=== PATIENT | female | born 1965 | race Caucasian/White ===

== ENCOUNTER 2017-06-10 21:22 | Emergency (ER) | payer BC ==
[~2017-06-10] VITALS: Ht 170.2 cm; Wt 74.8 kg
--- NOTE | 2017-06-10 21:25 | ED.ADGEN ---
Past History Past Medical History: Other Adult General Chief Complaint Chief Complaint " I some how got the door shut on my finger..." ( Lt. 3 finger) " My daughter... clean it up .. but it still has some charcoal in it..." HPI HPI Patient is a 51 year old female who presents with above hx and complaints of 2 cm laceration across mid 3 rd finger Lt hand. Distal neuro vascular intact. Pt. can flex and extend. Pt. does have some impregnated charcoal in laceration. Pt. up to date with Tetanus. Pt. denies significant medical problems. Pt. is Rt. hand dominate. No hx of immunosuppression. No recent travel. Review of Systems Review of Systems Constitutional: Denies fever or chills [] Eyes: Denies change in visual acuity, redness, or eye pain [] HENT: Denies nasal congestion or sore throat [] Respiratory: Denies cough or shortness of breath [] Cardiovascular: No additional information not addressed in HPI [] GI: Denies abdominal pain, nausea, vomiting, bloody stools or diarrhea [] : Denies dysuria or hematuria [] Musculoskeletal: Denies back pain or joint pain [] Integument: Denies rash or skin lesions []Laceration as per HPI Neurologic: Denies headache, focal weakness or sensory changes [] Endocrine: Denies polyuria or polydipsia [] Family History Family History Non-contributory Current Medications Current Medications Current Medications Medications (Trade) Dose Ordered Sig/Ciro Start Time Stop Time Status Last Admin Dose Admin Bupivacaine HCl (Sensorcaine Mpf 0.5%) 30 ml 1X ONCE 06/10/17 22:00 06/10/17 22:01 DC 06/10/17 22:00 30 ML Cephalexin HCl (Keflex) 500 mg 1X ONCE 06/10/17 23:00 06/10/17 23:01 DC Lidocaine HCl 50 ml 1X ONCE 06/10/17 22:00 06/10/17 22:01 DC Trimethoprim/ Sulfamethoxazole (Bactrim Ds) 1 tab 1X ONCE 06/10/17 23:00 06/10/17 23:01 DC 06/10/17 22:57 1 TAB See Nursing for home meds Allergies Allergies Allergies Coded Allergies Type Severity Reaction Last Updated Verified No Known Drug Allergies 06/10/17 No Physical Exam Physical Exam Constitutional: Well developed, well nourished, in moderated distress, non- toxic appearance. [] HENT: Normocephalic, atraumatic, bilateral external ears normal, oropharynx moist, no oral exudates, nose normal. [] Eyes: PERRLA, EOMI, conjunctiva normal, no discharge. [] Neck: Normal range of motion, no tenderness, supple, no stridor. [] Cardiovascular:Heart rate regular rhythm, no murmur [] Lungs & Thorax: Bilateral breath sounds clear to auscultation [] Abdomen: Bowel sounds normal, soft, no tenderness, no masses, no pulsatile masses. [] Skin: Warm, dry, no erythema, no rash. Laceration as per HPI Back: No tenderness, no CVA tenderness. [] Extremities: No tenderness, no cyanosis, no clubbing, ROM intact, no edema. [] Neurologic: Alert and oriented X 3, normal motor function, normal sensory function, no focal deficits noted. [] Psychologic: Affect normal, judgement normal, mood normal. [] Current Patient Data Vital Signs Vital Signs Date Time Temp Pulse Resp B/P (MAP) Pulse Ox O2 Delivery O2 Flow Rate FiO2 06/10/17 22:54 97 18 123/83 (96) 98 Room Air 06/10/17 21:22 97.9 EKG EKG [] Radiology/Procedures Radiology/Procedures My interpretation of hand x-ray show no dislocation or marked fx of 3 rd finger. Some edema.[] Course & Med Decision Making Course & Med Decision Making Pertinent Labs and Imaging studies reviewed. (See chart for details) Finger Laceration Repair- Betadine, and then application of 3 cc of Lido/Sensorcaine digital block. Wound cleaned with surgical scrub brush. Irrigated extensively with saline in range of motion. Suture 4-0 prolene x 5. Bulk dressing /splint applied. Instructed to keep laceration clean and dry. Polysporin 4 x day. Sutures out in 10 days. Monitor for infection. Bactrim DS twice a day x 5 days. Return if any concerns. Note : Before discharge- Given Rx Bactrim DS twice a day.x 5 days. Pt. request. Stated Keflex sometimes up set her stomach. - could not change on discharge instruction, verbal instruction given. [] Final Impression Final Impression 1. Crush Injury 2. Laceration[] Problems: Dragon Disclaimer Dragon Disclaimer This electronic medical record was generated, in whole or in part, using a voice recognition dictation system. FREDRICK JIANG MD Jun 10, 2017 21:25
[2017-06-10] MEDS ORDERED: LIDOCAINE 1% 50 ML VIAL. IV ONE (22:00)
[2017-06-10] MEDS ORDERED: BUPIVACAINE MPF 0.5% 30 ML VIAL. SQ ONE (22:00)
[2017-06-10] MEDS ORDERED: CEPH-264 PO (22:37)
[2017-06-10] MEDS: CEPHALEXIN 250 MG CAPSULE PO ONE ×2 (22:46→22:51)
[2017-06-10 22:54] VITALS: BP 123/83
[2017-06-10] MEDS ORDERED: SMZ/TMP 800/160MG TABLET. PO ONE (23:00)
--- NOTE | 2017-06-11 08:50 | RAD ---
Examination: 3 views of the left hand History: History of slammed in door or laceration to the distal third digit. Comparison: None available Findings: The alignment of the metacarpophalangeal joints, interphalangeal joint grossly appears unremarkable. There is no acute fracture or dislocation identified. Impression: No acute osseous findings.
== END 2017-06-10 22:54 | disposition home or self-care (01) ==
LOC: ER 21:22
DX: S61.213A Laceration without foreign body of left middle finger without damage to nail, initial encounter (principal); W23.0XXA Caught, crushed, jammed, or pinched between moving objects, initial encounter; Y93.89 Activity, other specified; Y99.8 Other external cause status; Y92.89 Other specified places as the place of occurrence of the external cause
CPT/HCPCS: 12002; 73130; 99284; J3490